=== PATIENT | female | born 2005 | race Caucasian/White ===

== ENCOUNTER 2025-03-09 18:49 | Emergency (ER) | payer SELFPAY ==
[2025-03-09 18:51] VITALS: BP 125/81; PULSE 77; RESP 16; TEMP 36.6; O2SAT 99; BMI 21.0
--- NOTE | 2025-03-09 19:44 | EDS_ITS ---
HPI History of Present Illness Chief Complaint: Allergic Reaction Narrative Narrative: Patient is a 19-year-old female presenting to the emergency department for an allergic reaction. Patient states that she got a reaction before. She states that she was stung by a yellow jacket at approximately 1 PM. She states that she was stung in the right foot. She reports that she took 25 mg benadryl around 4 PM. She reports swelling of my ears as well as urticaria. Reports initially she had some nausea but this is resolved. Denies any abdominal pain, nausea, vomiting, diarrhea currently denies any chest pain, shortness of breath or wheezing. Denies any difficulty breathing. Denies any throat or mouth swelling. Denies any difficulty swallowing. PFSH PFSH Medical History no medical history Home Medications ?Medication ?Instructions ?Recorded ?Last Taken ?Type epinephrine 0.3 mg/0.3 mL 0.3 mg (0.3 mL) IM Q10M PRN PRN 03/09/25 Unknown Rx injection, auto-injector (EpiPen anaphylaxis #2 ea 2-Quentin) prednisone 50 mg tablet 50 mg PO DAILY 4 days #4 tab s 03/09/25 Unknown Rx Allergy/AdvReac Type Severity Reaction Status Date / Time No Known Allergies Allergy Verified 03/09/25 18:50 Family History no significant family his Surgical History no surgical history Social History Smoking Status: Current some day smoker tobacco type: e-cigarettes ROS ROS ED ROS Narrative see HPI EXAM Physical Exam Narrative Exam Narrative: Vital signs: Reviewed General: Alert and orientedx3. No acute distress HEENT: Head is normocephalic and atraumatic, sinuses nontender, pupils equal round and reactive. Nares are patent. Oropharynx and throat exams normal. No lip, tongue or oropharynx swelling. No facial swelling. Neck: Supple without lymphadenopathy nontender Cardiovascular: Regular rate and rhythm, no murmurs. No rubs or gallops. Normal S1 and S2 Respiratory: Clear to auscultation bilaterally. No wheezes, rales, rhonchi Abdominal: Soft and nontender. Normal bowel sounds. No guarding or rebound. Nonsurgical abdomen Extremities: No tenderness. No bruising. Normal range of motion. Normal sensation. Skin: Diffuse urticaria across extremities and trunk. Neurological: Cranial nerves II through XII are grossly intact. Normal strength and sensation. Normal cerebellar function The rest of the physical exam is unremarkable Const Vital Signs: 03/09/25 18:51 03/09/25 19:50 03/09/25 20:00 Temperature 97.8 F Temperature Source Temporal Pulse Rate 77 Respiratory Rate 16 Blood Pressure 125/81 H 119/72 119/72 Blood Pressure Mean 95 87 87 Pulse Ox 99 Oxygen Delivery Method Room Air 03/09/25 20:37 Temperature 97.8 F Temperature Source Pulse Rate 77 Respiratory Rate 16 Blood Pressure 119/72 Blood Pressure Mean 87 Pulse Ox 99 Oxygen Delivery Method MDM MDM MDM Narrative Medical decision making narrative: Patient is a 19-year-old female presenting to the emergency department for an al lergic reaction. Patient was seen and examined. Vitals are stable. Patient resting in bed comfortably no acute distress. Patient has already taken 25 mg of Benadryl. She will be given an additional 25 mg here. She was also given 60 mg of prednisone and 40 mg of Pepcid. She only has skin findings of an allergic reaction at this time. No GI or respiratory findings to be concerned about anaphylaxis. Will observe here and discharged home on Benadryl/Zyrtec, prednisone and EpiPen's. Patient notified nursing staff that she feels better and wants to go home. Discussed follow-up precautions with the patient and reasons to return. Recommended short 40 course of prednisone and to take Benadryl and Zyrtec for any allergic type symptoms including itching at home. Patient comfortable with the plan. Patient discharged from the Emergency Department. I do not feel that the patient's evaluation reveals any acute reason for admission at this time. I instructed them to either follow-up with their primary care physician or promptly return to the Emergency Department for reevaluation should symptoms worsen or new symptoms develop. I explained what symptoms would indicate the need to return to the emergency department. Shared decision making was used. The patient voiced understanding of the treatment plan and is agreeable with it. Clinical impression Allergic reaction History & Record Review Discussion w/independent historian: Patient and Significant other Discharge Plan Triage Chief Complaint: Allergic Reaction ED Provider: Umu Sotelo Dx/Rx/DC Orders Clinical Impression: Allergic reaction Instructions: ED BEE STING General Allergic Rxn Prescriptions: New prednisone 50 mg tablet 50 mg PO DAILY 4 Days Qty: 4 0RF epinephrine [EpiPen 2-Quentin] 0.3 mg/0.3 mL auto-injector 0.3 mg IM Q10M PRN PRN (Reason: anaphylaxis) Qty: 2 0RF Rx Instructions: for 2 doses Primary Care Provider: Care Physician,No Primary Referrals: Kanika Posey MD [Med Staff - Prefabricator] - 2 Days Care Physician,No Primary [Primary Care Provider] - Activity Restrictions/Additional Instructions: Take the steroids 1 pill every day for 4 days. Over the next week you can take Benadryl at night or Zyrtec during the day for itching. I also prescribed you EpiPen's. Your evaluation in the Emergency Department did not reveal any acute reason for admission. However, I want to emphasize that you may be early in the course of a disease process or illness even if it is not present. For this reason you should follow-up within 24 hours for reevaluation with either your primary care physician or if necessary back here in the Emergency Department. You should return to the Emergency Department immediately if your symptoms worsen or new symptoms develop. Print Language: Yakut Disposition Disposition: Home, Self Care Discharge Date/Time: 03/09/25 20:37
[2025-03-09 19:50] VITALS: BP 119/72
[2025-03-09 20:00] VITALS: BP 119/72
[2025-03-09 20:37] VITALS: BP 119/72; PULSE 77; RESP 16; TEMP 36.6; O2SAT 99
== END 2025-03-09 20:37 | disposition home or self-care (01) ==
PROVIDERS: Emergency Provider Student in an Organized Health Care Education/Training Program; Visit Provider Student in an Organized Health Care Education/Training Program
DX: T78.49XA Other allergy, initial encounter (principal); F17.290 Nicotine dependence, other tobacco product, uncomplicated
CPT/HCPCS: 99282